=== PATIENT | male | born 1955 | race American Indian/Alaskan Native ===

== ENCOUNTER 2017-01-18 08:42 | Outpatient (CLI) | payer MEDICARE, OTHER ==
--- NOTE | 2017-01-18 15:24 | Cat Scan Report ---
CT abdomen and pelvis without contrast: Prostate cancer. Transverse images were obtained of the left chest to the ischium with coronal and sagittal 2-D reformatted images. Visualized lungs are clear with no nodules. The abdominal and retroperitoneal organs appear normal. There are bilateral extrarenal pelves. The abdominal aorta is normal. There no obvious periaortic or mesenteric lymph nodes however the absence of IV contrast limits this evaluation. The partially opacified bowel and mesentery appears grossly normal. Most of the contrast however is in the colon. Images of the pelvis demonstrate an unremarkable urinary bladder and prostate gland. No blastic or lytic bone lesions identified. Impression: No metastatic lesions identified.
--- NOTE | 2017-01-19 07:41 | Nuclear Medicine Report ---
BONE SCAN: History: Malignant neoplasm of prostate. Technique: Anterior and posterior whole-body images were obtained 3 hours after injection of 25 mCi of technetium 99 M. MDP. Comparison: No previous bone scan. Correlation is made with a noncontrast CT abdomen and pelvis performed the same day. Findings: Distribution of the radiotracer is physiologic. Mild degenerative uptake is noted in the bilateral shoulders, sternoclavicular joints and knees. There is focal intense uptake overlying the first metatarsophalangeal joint of the right foot. This could be degenerative in nature or related to gout. No abnormal pelvic, spine, rib or calvarial lesions. No pattern suspicious for metastatic bone disease. IMPRESSION: No evidence for metastatic disease to the bones. Degenerative findings as described.
== END 2017-01-18 08:43 | disposition home or self-care (01) ==
LOC: NM 08:42
PROVIDERS: ATTEND Urology
DX: C61 Malignant neoplasm of prostate (principal)
CPT/HCPCS: 74176; 78306; A9503

== ENCOUNTER 2019-08-20 04:59 | Emergency (ER) | payer OTHER ==
[2019-08-20 05:59] VITALS: BP 131/70
[2019-08-20] MEDS ORDERED: SODIUM CHLORIDE 0.9% 1000 ML 1,000 ML ONE (06:17)
--- NOTE | 2019-08-20 06:31 | Emergency Department Report ---
ED Fever HPI - General Chief Complaint: Upper Respiratory Infection Stated Complaint: COUGH/FEVER Time Seen by Provider: 08/20/19 06:23 Source: patient Exam Limitations: no limitations - History of Present Illness Initial Comments: Mr. Hall is a 63 yo male without significant past medical hx who presents with cough nasal congestion fever for 8 days. 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 No recent travel. No sick contacts. He has continued to work. He lives with his 2 brothers. Timing/Duration: other (8 days) Fever Severity/Quality: subjective Associated Symptoms: other (Cough nasal congestion) ED Review of Systems ROS: Stated complaint: COUGH/FEVER Other details as noted in HPI Comment: All other systems reviewed and negative Constitutional: fever ENT: congestion Respiratory: cough. denies: shortness of breath ED Past Medical Hx - Past Medical History Previous Medical History?: No - Surgical History Past Surgical History?: No - Social History Smoking Status: Never Smoker Substance Use Type: None - Medications Home Medications: Home Medications Medication Instructions Recorded Confirmed Last Taken Type Benzonatate [Tessalon Perles] 100 mg PO Q8HR PRN #15 capsule 08/20/19 Unknown Rx Loratadine [Claritin] 10 mg PO DAILY #14 tablet 08/20/19 Unknown Rx ED Physical Exam - General Limitations: Language Barrier General appearance: alert, in no apparent distress - Head Head exam: Present: atraumatic, normocephalic - Eye Eye exam: Present: normal appearance - ENT ENT exam: Present: mucous membranes moist - Neck Neck exam: Present: normal inspection, full ROM - Respiratory Respiratory exam: Present: normal lung sounds bilaterally. Absent: respiratory distress, wheezes, rales, rhonchi - Cardiovascular Cardiovascular Exam: Present: regular rate, normal rhythm, normal heart sounds. Absent: systolic murmur, diastolic murmur, rubs, gallop - GI/Abdominal GI/Abdominal exam: Present: soft, normal bowel sounds. Absent: distended, tenderness, guarding, rebound - Rectal Rectal exam: Present: deferred - Extremities Exam Extremities exam: Present: normal inspection - Neurological Exam Neurological exam: Present: alert, oriented X3 - Psychiatric Psychiatric exam: Present: normal affect, normal mood - Skin Skin exam: Present: warm, dry, intact, normal color. Absent: rash ED Course Vital Signs 08/20/19 05:20 Temperature 98.6 F Pulse Rate 73 Respiratory 16 Rate Blood Pressure 131/70 Blood Pressure 131/70 [Left] O2 Sat by Pulse 94 Oximetry ED Medical Decision Making - Radiology Data Radiology results: report reviewed Chest radiograph PA lateral: No acute findings according to radiology impression - Medical Decision Making This is a 63-year-old healthy male without significant past medical history who presents with reported fever cough nasal congestion. Differential diagnosis includes upper respiratory infection versus influenza versus COVID 19 infection I have advised the patient to self isolate for 14 days considering possible COVID 19 infection Critical care attestation.: If time is entered above; I have spent that time in minutes in the direct care of this critically ill patient, excluding procedure time. ED Disposition Clinical Impression: Upper respiratory infection Disposition: DC-01 TO HOME OR SELFCARE Is pt being admited?: No Does the pt Need Aspirin: No Condition: Stable Instructions: COVID-19 Additional Instructions: You may a coronavirus infection. You must stay home for 14 days to avoid infecting others. Prescriptions: Loratadine [Claritin] 10 mg PO DAILY #14 tablet Benzonatate [Tessalon Perles] 100 mg PO Q8HR PRN #15 capsule PRN Reason: Cough Forms: Work/School Release Form(ED)
--- NOTE | 2019-08-20 06:53 | XRay Report ---
CHEST 1 VIEW INDICATION / CLINICAL INFORMATION: cough fever. COMPARISON: None available. FINDINGS: SUPPORT DEVICES: None. HEART / MEDIASTINUM: No significant abnormality. LUNGS / PLEURA: No significant pulmonary or pleural abnormality. No pneumothorax. ADDITIONAL FINDINGS: No significant additional findings. IMPRESSION: No acute pulmonary or pleural abnormality Signer Name: Irwin Darden MD FACR Signed: 08/20/2019 6:48 AM Workstation Name: [id number]
== END 2019-08-20 07:05 | disposition home or self-care (01) ==
LOC: ED 04:59
DX: J06.9 Acute upper respiratory infection, unspecified (principal); Z79.899 Other long term (current) drug therapy
CPT/HCPCS: 71045; J7030